=== PATIENT | female | born 1985 | race Caucasian/White ===

== ENCOUNTER → 2021-10-26 | Outpatient (CLI) | payer MEDICARE, OTHER ==
--- NOTE | 2021-10-27 03:35 | MR ---
EXAMINATION TYPE: MR brain/cspine wo DATE OF EXAM: 10/26/2021 COMPARISON: None HISTORY: Radiculopathy, ubaldo weakness, seizures Multiplanar multiecho imaging of the brain and cervical spine without contrast. Ventricles have normal size. There is no mass effect nor midline shift. There is no evidence of intra cranial hemorrhage. Diffusion images show no evidence of an acute infarct. The hook and white matter structures have fairly normal signal pattern. There is no evidence of cerebral edema. Brainstem is in tact. There is no evidence of posterior fossa mass. Internal auditory canals appear normal. Corpus callosum appears normal. Sella turcica is normal. There is no evidence of orbital mass. The cervical vertebra have normal spacing and alignment. Posterior elements are intact. Cervical spin al cord has normal signal pattern. There is no edema. Brainstem is intact. There is no compression fr acture. Prevertebral soft tissues appear intact. Facet joints appear normal. There is no cervical spi nal stenosis. There is no cervical paraspinal mass. IMPRESSION: Normal MR scan of the cervical spine. Normal MR scan of the brain.
== END | disposition home or self-care (01) ==
LOC: RADMRIMAIN 18:47
PROVIDERS: ATTEND Family Medicine
DX: M54.12 Radiculopathy, cervical region (principal)
CPT/HCPCS: 70551; 72141